=== PATIENT | male | born 1955 | race Caucasian/White ===

== ENCOUNTER 2021-02-23 18:44 | Emergency (ER) | payer MEDICARE, SELFPAY ==
[2021-02-23 18:50] VITALS: BP 129/80; PULSE 85; RESP 21; TEMP 37; O2SAT 97; BMI 27.8
--- NOTE | 2021-02-23 19:26 | HMH.EDUTC ---
[facility] [place] Impression: Exposure to COVID-19 virus Disposition: Home, Self-Care Condition on Discharge: Good Instructions: DI for COVID-19 (Suspected or Confirmed ), COVID-19: Protecting Yourself When You're at High Risk, Preventing the Spread of Coronavirus Discharge Instructions Additional Instructions: covid swab was sent to lab, call later today for results. self isolate until test results are known to be negative No sign of a bacterial infection. Likely viral. Viruses can take 7-14 days to run their course. Nasal saline and bulb syringe or nose Shirin to remove nasal drainage to help with nasal congestion. Hard to eat, drink, sleep with nasal congestion so important to keep this cleaned out. Monitor temp. Tylenol or Motrin as needed for pain or fever Encourage fluids, water, Gatorade, Powerade, Pedialyte if infant/toddler/child Warm salt water gargles Warm fluids Sore throat lozenges Sleep elevated Humidifier/vaporizer Follow-up immediately for new or worsening symptoms or no noticeable improvement over the next 48-72 hours. Referrals: Raphael Alcaraz [Primary Care Provider] - Time of Disposition: 19:29 Medical Decision Making - Florentino Inquiry Pt receiving controlled substance: No Vital Signs: 02/23/21 18:50 Temperature 98.6 F Temperature Source Oral Pulse Rate [Right Brachial] 85 Respiratory Rate 21 Blood Pressure [Right Arm] 129/80 Blood Pressure Mean [Right Arm] 96 Blood Pressure Source [Right Arm] Automatic Cuff Blood Pressure Position [Right Arm] Sitting 02 Sat by Pulse Oximetry 97 Oxygen Delivery Method Room Air Orders (Tests/Meds): ORDERS Category Date Time Status Covid-19 Nasal PCR ([facility]) Routine Lab 02/23/21 18:55 [place] [facility] [place] - General Chief complaint: [facility] Stated complaint: covid test/symptoms Time Seen by Provider: 02/23/21 19:26 Mode of Arrival: Ambulatory Source of Information: Patient Limitations: No Limitations Description of Symptoms (Recalled from Triage Doc. by RN): PATIENT C/O SINUS PRESSURE, COUGH, AND CONGESTION X 2 DAYS. RECENTLY EXPOSED TO COVID HEENT Symptoms (Recalled from RN notes): Yes Resp Symptoms (Recalled from RN notes): No Skin Symptoms (Recalled from RN notes): No MS Symptoms (Recalled from RN notes): No Functional Status (Recalled from RN notes): WNL - History of Present Illness Provider Complaint: 65 yr old male presents for covid like symptoms. pt states he was exposed and started having body aches,sore throat, sinus congestion and cough since last pm - Related Data Allergies Allergy/AdvReac Type Severity Reaction Status Date / Time No Known Allergies Allergy Verified 02/23/21 19:15 - Worker's Comp Is this a Worker's Comp case?: No H History - Hepatitis A Screen Drug use history?: No High risk sexual behaviors?: No History of sexually transmitted infection?: No Currently employed?: No Childcare worker?: No Do you have indoor plumbing?: Yes Do you have electricity?: Yes Attestation statement:: This patient has been screened for Hepatitis A risk factors. I have reviewed the patient's past medical history: Yes ROS Obtained: Yes Systems reviewed as appropriate & no additional complaints - Constitutional Constitutional: Reports system reviewed and no additional complaints, except as docu, Reports body ache, Reports fatigue, Denies fever(s) - Eyes Eyes: Reports system reviewed and no additional complaints, except as docu, Denies blurry vision - ENT Ears, Nose, Mouth, and Throat: Reports system reviewed and no additional complaints, except as docu, Reports nasal congestion, Reports nasal discharge, Reports post nasal drip, Reports sinus pain, Reports sinus pressure, Reports sore throat - Cardiovascular Cardiovascular: Reports system reviewed and no additional complaints, except as docu, Denies chest pain - Respiratory Respiratory: Reports system reviewed and no additional complaints, exc
[2021-02-23 19:36] VITALS: BP 129/80; PULSE 85; RESP 21; TEMP 37; O2SAT 97
--- NOTE | 2021-02-24 17:13 | PC.NURSE ---
pt called and advised of positive covid test
== END 2021-02-23 19:42 | disposition home or self-care (01) ==
PROVIDERS: Emergency Provider Nurse Practitioner Family; PCP Family Medicine
DX: U07.1 COVID-19 (principal)
CPT/HCPCS: G0463; 99202; U0003